=== PATIENT | male | born 1950 | race Caucasian/White ===

== ENCOUNTER 2022-08-25 09:23 | Emergency (ER) | payer MEDICAID, OTHER ==
[~2022-08-25] VITALS: Ht 165.1 cm; Wt 73.0 kg
[~2022-08-25 09:23] MED LIST: GLIP5TAB12 PO; METF-414 PO
[2022-08-25 09:44] LABS: BASOPHILS % 0.2 % (0.0-2.0); EOSINOPHILS % 0.1 % (0.0-5.0); HEMOGLOBIN. 14.3 g/dL (14.0-18.0); LYMPHOCYTES % 11.4 % (20.0-50.0); MEAN CORPUSCULAR HEMOGLOBIN 27.1 pg (28.0-32.0); MEAN CORPUSCULAR VOLUME 83.4 fL (80.0-94.0); MEAN PLATELET VOLUME 7.6 fl (7.4-10.4); MONOCYTES % 4.1 % (2.0-8.0); NEUTROPHILS % 84.2 % (40.0-76.0); PLATELET 243 x1000/uL (130-400); RED BLOOD CELL COUNT 5.27 mill/uL (4.7-6.1); RED CELL DISTRIBUTION WIDTH 13.8 % (11.6-14.6)
[2022-08-25 09:54] LABS: CHLORIDE 104 mEq/L (98-107)
[2022-08-25] MEDS ORDERED: ONDANSETRON HCL 4MG/2ML INJ IV STA (10:15)
[2022-08-25] MEDS ORDERED: MORPHINE SULFATE 2 MG/ML CPJ (NOT FOR IM USE) IV ONE (11:00)
[2022-08-25 11:09] LABS: CLARITY URINE CLEAR (CLEAR); COLOR URINE YELLOW (YELLOW); KETONES URINE 1+ (NEGATIVE); LEUKOCYTE ESTERASE URINE NEGATIVE (NEGATIVE); NITRITE URINE NEGATIVE (NEGATIVE); OCCULT BLOOD URINE NEGATIVE (NEGATIVE); PH URINE 7.5 (4.5-8.0); PROTEIN URINE NEGATIVE (NEGATIVE); SPECIFIC GRAVITY URINE 1.033 (1.005-1.030)
[2022-08-25] MEDS ORDERED: IOHEXOL-300 50 ML BOTTLE IV ONE (12:06)
[2022-08-25] MEDS ORDERED: IOHEXOL-300 100 ML BOTTLE ONE (12:09)
[2022-08-25 12:28] VITALS: BP 162/88
[2022-08-25] MEDS ORDERED: MORPHINE SULFATE 2 MG/ML CPJ (NOT FOR IM USE) IV NR (12:33)
[2022-08-25] MEDS ORDERED: OMEP20TA23 MT (12:51)
[2022-08-25] MEDS ORDERED: SUCR1TAB MT (12:51)
[2022-08-25] MEDS ORDERED: ONDA4TAB50 MT (12:53)
== END 2022-08-25 13:30 | disposition home or self-care (01) ==
LOC: ER 09:23
DX: R11.2 Nausea with vomiting, unspecified (principal); R10.9 Unspecified abdominal pain; E11.9 Type 2 diabetes mellitus without complications; Z79.84 Long term (current) use of oral hypoglycemic drugs
CPT/HCPCS: 36415; 74177; 80053; 81003; 84484; 85025; 93005; 96374; 99285; J2270; Q9967; Z7610

== ENCOUNTER 2025-01-01 08:28 | Emergency (ER) | payer MEDICAID ==
[~2025-01-01] VITALS: Ht 167.6 cm; Wt 85.0 kg
[~2025-01-01 08:28] MED LIST changes: -GLIP5TAB12 PO; +GLIP5TAB22 PO; +OMEP20TA23 MT; +ONDA4TAB50 MT; +SUCR1TAB MT
[2025-01-01 08:38] VITALS: O2SAT 99
[2025-01-01 09:06] LABS: BASOPHILS % 0.8 % (0.0-2.0); EOSINOPHILS % 1.7 % (0.0-5.0); HEMATOCRIT. 37.9 % (42.0-52.0); HEMOGLOBIN. 12.4 g/dL (14.0-18.0); LYMPHOCYTES % 32.8 % (20.0-50.0); MEAN PLATELET VOLUME 8.2 fl (7.4-10.4); MONOCYTES % 8.9 % (2.0-8.0); NEUTROPHILS % 55.8 % (40.0-76.0); PLATELET 181 x1000/uL (130-400); RED BLOOD CELL COUNT 4.63 mill/uL (4.7-6.1); RED CELL DISTRIBUTION WIDTH 13.3 % (11.6-14.6)
[2025-01-01 09:26] LABS: CREATININE 1.1 mg/dL (0.6-1.3); UREA NITROGEN BLOOD 14 mg/dL (9-23)
[2025-01-01 09:27] LABS: TROPONIN I HIGH SENSITIVITY 10 ng/L (3.0-53)
[2025-01-01] MEDS ORDERED: MELO-105 MT (10:29)
[2025-01-01 10:40] VITALS: BP 122/56; PULSE 64; RESP 16; TEMP 36.4; O2SAT 100
== END 2025-01-01 10:44 | disposition home or self-care (01) ==
LOC: ER 08:28
DX: M17.0 Bilateral primary osteoarthritis of knee (principal); R60.0 Localized edema; E03.9 Hypothyroidism, unspecified; E11.9 Type 2 diabetes mellitus without complications; E78.00 Pure hypercholesterolemia, unspecified; Z79.899 Other long term (current) drug therapy; Z98.890 Other specified postprocedural states
CPT/HCPCS: 36415; 71045; 73560; 80048; 83880; 84484; 85025; 93005; 99285